=== PATIENT | male | born 1960 | race Caucasian/White ===

== ENCOUNTER 2017-12-21 15:37 | Emergency (ER) | payer MEDICAID ==
[~2017-12-21] VITALS: Ht 165.1 cm; Wt 66.7 kg
--- NOTE | 2017-12-21 16:58 | NUR ---
MSE COMPLETED, PT D/C'D HOME, REFERRALS GIVEN . PT AMBULATED W/O DIFF/TOOK ALL BELONGINGS. DAUGHTER PRESENT AND TO DRIVE.
[2017-12-21 17:01] VITALS: BP 111/66
== END 2017-12-21 17:02 | disposition home or self-care (01) ==
LOC: ER 15:39
DX: F10.959 Alcohol use, unspecified with alcohol-induced psychotic disorder, unspecified (principal)
CPT/HCPCS: 99281; A4663

== ENCOUNTER 2018-03-07 22:55 | Emergency (ER) | payer MEDICAID ==
[~2018-03-07] VITALS: Ht 157.5 cm; Wt 61.2 kg
--- NOTE | 2018-03-07 23:23 | NUR ---
ER MD at bedside for patient evaluation. Patient remains in bed, no acute distress noted. VSS
[2018-03-07] MEDS ORDERED: LORAZEPAM 0.5 MG TABLET PO ONE (23:30)
[2018-03-07] MEDS ORDERED: CLONIDINE HCL 0.1 MG TABLET PO ONE (23:30)
[2018-03-07] MEDS ORDERED: CLONIDINE HCL 0.1 MG TABLET ONE (23:30)
[2018-03-07] MEDS ORDERED: LORAZEPAM 1 MG TABLET ONE (23:31)
--- NOTE | 2018-03-07 23:43 | NUR ---
Patient discharged to home in stable conditon. Written and verbal after care instructions given. Patient verbalizes understanding of instructions. Ambulated from ER with stable gait, patient to be driven home by family in private vehicle. [facility] provided to patient. All belongings with patient. VSS
[2018-03-07 23:47] VITALS: BP 138/92
== END 2018-03-07 23:48 | disposition home or self-care (01) ==
LOC: ER 22:56
DX: F10.10 Alcohol abuse, uncomplicated (principal)
CPT/HCPCS: A4663